=== PATIENT | male | born 1995 | race Caucasian/White ===

== ENCOUNTER 2017-02-11 07:20 | Emergency (ER) | payer SELFPAY ==
[~2017-02-11] VITALS: Ht 175.3 cm; Wt 68.0 kg
[~2017-02-11 07:20] MED LIST: ACET1TAB12 PO; ALEVE; AMOX500C2 PO; CLIN-62; LIDO20SO20 PO; TYLENOL
[2017-02-11] MEDS ORDERED: diphenhydrAMINE 50 MG/ML INJ (BENADRYL) ONE (07:34)
[2017-02-11] MEDS ORDERED: NS IV 1000 ML 1,000 ML ONE (07:34)
[2017-02-11] MEDS ORDERED: KETOROLAC 30 MG/ML VIAL ONE (07:34)
[2017-02-11] MEDS ORDERED: NS IV 1000 ML 1,000 ML IV ONE (07:36)
[2017-02-11] MEDS ORDERED: KETOROLAC 30 MG/ML VIAL IVP STA (07:36)
[2017-02-11] MEDS ORDERED: diphenhydrAMINE 50 MG/ML INJ (BENADRYL) IM ONE (07:45)
[2017-02-11] MEDS ORDERED: PROCHLORPERAZINE 10 MG/2ML INJ (COMPAZINE) IV ONE (07:45)
--- NOTE | 2017-02-11 07:54 | ED Headache ---
General Chief Complaint: Head/Cervical Problems Stated Complaint: MIGRAINE//FEVER Nursing Triage Note: to ER with reports of headache x 3 days and feeling "hot." Patient reports history of headaches in the past, they usually just don't last this long. Nursing Sepsis Screen: No Definite Risk Source: patient Exam Limitations: no limitations History of Present Illness Time seen by provider: 07:30 Initial Comments Here with complaint of headache that is bifrontal behind the eyes that has been going on for 3 days. Patient states that he has migraine headaches and the pain is typical but has lasted longer than typical. Denies nausea or vomiting. Denies fever but states he is feeling hot and denies chills. Timing/Duration: other (3 days) Severity/Quality: moderate Location: frontal Prior Headaches/Recent Trauma: occasional headaches Modifying Factors: improves with exposure to light Associated Symptoms: No confusion, No fatigue, No facial pain, fever/chills, No loss of consciousness, No nausea/vomiting, No nasal congestion, No nasal drainage, No seizures, No sinus infection, No stiff neck, No vision changes, No weakness Allergies and Home Medications Allergies Coded Allergies: NKANo Known Allergies (Verified Allergy, Unknown, 04/02/07) Home Medications No Active Prescriptions or Reported Meds Constitutional: see HPI, No chills, fever Eyes: No Symptoms Reported Ears, Nose, Mouth, Throat: see HPI, denies ear pain, nose discharge Respiratory: No cough, No short of breath Cardiovascular: No chest pain, No edema Gastrointestinal: No abdominal pain, No nausea, No vomiting Genitourinary: no symptoms reported All Other Systems Reviewed Negative Unless Noted: Yes Past Konssuz-Pehooy-Tqnzgx Hx Patient Social History Alcohol Use: Denies Use Recreational Drug Use: No Smoking Status: Former Smoker Type Used: Cigarettes 2nd Hand Smoke Exposure: Yes Recent Foreign Travel: No Contact w/Someone Who Travel: No Recent Infectious Disease Expo: No Recent Hopitalizations: No Immunizations Up To Date Tetanus Booster (TDap): Less than 5yrs Seasonal Allergies Seasonal Allergies: Yes Surgeries HX Surgeries: No Respiratory Hx Respiratory Disorders: No Cardiovascular Hx Cardiac Disorders: No Neurological Hx Neurological Disorders: No Reviewed Nursing Assessment Reviewed/Agree w Nursing PMH: No Family Medical History Significant Family History: No Pertinent Family Hx Physical Exam Vital Signs Vital Sign - Last 12Hours 02/11/17 07:30 Temp 98.8 Pulse 95 Resp 16 B/P (MAP) 135/86 Pulse Ox 99 O2 Delivery Room Air Capillary Refill : Less Than 3 Seconds General Appearance: WD/WN, no apparent distress HEENT: PERRL/EOMI, TMs normal, pharynx normal Neck: full range of motion, supple Cardiovascular: regular rate, rhythm, no murmur Respiratory: lungs clear, normal breath sounds Gastrointestinal: non tender, soft Back: normal inspection, no CVA tenderness, no vertebral tenderness Extremities: non-tender, normal inspection Psychiatric: alert, oriented x 3 Crainal Nerves: normal hearing, normal speech, PERRL Coordination/Gait: normal gait Motor/Sensory: no motor deficit, no sensory deficit, no pronator drift Skin: normal color, warm/dry Progress/Results/Core Measures Results/Orders Lab Results Laboratory Tests Test 02/11/17 07:40 Range/Units White Blood Count 9.4 4.3-11.0 10^3/uL Red Blood Count 5.00 4.35-5.85 10^6/uL Hemoglobin 14.6 13.3-17.7 G/DL Hematocrit 44 40-54 % Mean Corpuscular Volume 88 80-99 FL Mean Corpuscular Hemoglobin 29 25-34 PG Mean Corpuscular Hemoglobin Concent 33 32-36 G/DL Red Cell Distribution Width 13.9 10.0-14.5 % Platelet Count 150 130-400 10^3/uL Mean Platelet Volume 11.7 H 7.4-10.4 FL Neutrophils (%) (Auto) 63 42-75 % Lymphocytes (%) (Auto) 17 12-44 % Monocytes (%) (Auto) 17 H 0-12 % Eosinophils (%) (Auto) 3 0-10 % Basophils (%) (Auto) 1 0-10 % Neutrophils # (Auto) 6.0 1.8-7.8 X 10^3 Lymphocytes # (Auto) 1.6 1.0-4.0 X 10^3 Monocytes # (Auto) 1.6 H 0.0-1.0 X 10^3 Eosinophils # (Auto) 0.3 0.0-0.3 10^3/uL Basophils # (Auto) 0.1 0.0-0.1 10^3/uL Sodium Level 138 135-145 MMOL/L Potassium Level 4.2 3.6-5.0 MMOL/L Chloride Level 105 98-107 MMOL/L Carbon Dioxide Level 23 21-32 MMOL/L Anion Gap 10 5-14 MMOL/L Blood Urea Nitrogen 16 7-18 MG/DL Creatinine 0.93 0.60-1.30 MG/DL Estimat Glomerular Filtration Rate > 60 BUN/Creatinine Ratio 17 0-20 Glucose Level 94 70-105 MG/DL Calcium Level 8.8 8.5-10.1 MG/DL Total Bilirubin 0.4 0.1-1.0 MG/DL Aspartate Amino Transf (AST/SGOT) 27 5-34 U/L Alanine Aminotransferase (ALT/SGPT) 37 0-55 U/L Alkaline Phosphatase 96 40-136 U/L C-Reactive Protein High Sensitivity 0.76 H 0.00-0.50 MG/DL Total Protein 6.7 6.4-8.2 GM/DL Albumin 3.9 3.2-4.5 GM/DL My Orders Orders - KALYN POWERS MD Prochlorperazine Injection (Compazine In (02/11/17 07:45) Diphenhydramine Injection (Benadryl Inje (02/11/17 07:45) Saline Lock/Iv-Start (02/11/17 07:36) Ns Iv 1000 Ml (Sodium Chloride 0.9%) (02/11/17 07:36) Ketorolac Injection (Toradol Injection) (02/11/17 07:36) Cbc With Automated Diff (02/11/17 07:36) Comprehensive Metabolic Panel (02/11/17 07:36) Hs C Reactive Protein (02/11/17 07:36) Diphenhydramine Injection (Benadryl Inje (02/11/17 07:34) Ketorolac Injection (Toradol Injection) (02/11/17 07:34) Ns Iv 1000 Ml (Sodium Chloride 0.9%) (02/11/17 07:34) Diphenhydramine Injection (Benadryl Inje (02/11/17 08:00) Medications Given in ED Current Medications Medications Dose Ordered Sig/Markus Route Start Time Stop Time Status Last Admin Dose Admin Diphenhydramine HCl 50 mg STK-MED ONCE .ROUTE 02/11/17 07:34 02/11/17 07:39 DC 02/11/17 07:50 50 MG Prochlorperazine Edisylate 5 mg ONCE ONCE IV 02/11/17 07:45 02/11/17 07:46 DC 02/11/17 07:52 5 MG Sodium Chloride 1,000 ml @ 0 mls/hr Q0M ONCE IV 02/11/17 07:36 02/11/17 07:38 DC 02/11/17 07:47 0 MLS/HR Vital Signs/I&O Vital Sign - Last 12Hours 02/11/17 02/11/17 02/11/17 07:30 07:47 07:51 Temp 98.8 98.8 98.8 Pulse 95 Resp 16 B/P (MAP) 135/86 Pulse Ox 99 O2 Delivery Room Air Blood Pressure Mean: 102 Progress Note : Progress Note Seen and evaluated. IV, labs, normal saline 1 L bolus, Benadryl 50 mg IV, Compazine 10 mg IV and Toradol 30 mg IV ordered. Monitor patient. 0851: Currently pain-free and would like to go home. Patient does not have to work today and can go home and rest. Discharged home with return precautions. Patient verbalize understanding instructions and agreement with plan. Departure Impression Impression: Primary Impression: Migraine Qualified Codes: G43.009 - Migraine without aura, not intractable, without status migrainosus Disposition: HOME, SELF-CARE Condition: Improved Decision to Admit Reason: Admit from ER (General) Departure-Patient Inst. Decision time for Depature: 08:54 Referrals: NO,LOCAL PHYSICIAN (PCP/Family) Primary Care Physician Patient Instructions: Migraine Headache (DC) Add. Discharge Instructions: All discharge instructions reviewed with patient and/or family. Voiced understanding. Drink plenty of fluids. You may take ibuprofen 800 mg every 8 hours as needed for pain. You may take Tylenol 1000 mg every 8 hours as needed for pain. Return for worse pain, fever, vomiting, weakness, breathing problems, persistent headache or other concerns as needed. Follow-up with your in a few days for recheck. Scripts No Active Prescriptions or Reported Meds KALYN POWERS MD Feb 11, 2017 07:54
[2017-02-11 07:59] LABS: BASOPHILS # (AUTO) 0.1 10^3/uL (0.0-0.1); BASOPHILS % (AUTO) 1 % (0-10); EOSINOPHILS # (AUTO) 0.3 10^3/uL (0.0-0.3); EOSINOPHILS % (AUTO) 3 % (0-10); LYMPHOCYTES # (AUTO) 1.6 X 10^3 (1.0-4.0); LYMPHOCYTES % (AUTO) 17 % (12-44); MEAN CORPUSCULAR HEMOGLOBIN 29 PG (25-34); MEAN CORPUSCULAR HGB CONC 33 G/DL (32-36); MEAN CORPUSCULAR VOLUME 88 FL (80-99); MEAN PLATELET VOLUME 11.7 FL (7.4-10.4); MONOCYTES # (AUTO) 1.6 X 10^3 (0.0-1.0); MONOCYTES % (AUTO) 17 % (0-12); NEUTROPHILS % (AUTO) 63 % (42-75); PLATELET COUNT 150 10^3/uL (130-400); RED CELL DISTRIBUTION WIDTH 13.9 % (10.0-14.5); WHITE BLOOD COUNT 9.4 10^3/uL (4.3-11.0)
[2017-02-11] MEDS ORDERED: diphenhydrAMINE 50 MG/ML INJ (BENADRYL) IVP ONE (08:00)
[2017-02-11 08:25] LABS: ALANINE AMINOTRANSFERASE 37 U/L (0-55); ALBUMIN 3.9 GM/DL (3.2-4.5); ANION GAP 10 MMOL/L (5-14); ASPARTATE AMINO TRANSFERASE 27 U/L (5-34); BILIRUBIN,TOTAL 0.4 MG/DL (0.1-1.0); BLOOD UREA NITROGEN 16 MG/DL (7-18); BUN/CREATININE RATIO 17 (0-20); CALCIUM 8.8 MG/DL (8.5-10.1); CARBON DIOXIDE 23 MMOL/L (21-32); CHLORIDE 105 MMOL/L (98-107); CREATININE SERUM 0.93 MG/DL (0.60-1.30); GFR ESTIMATED > 60; GLUCOSE 94 MG/DL (70-105); HEMOLYSIS 9 (-100-29); ICTERUS 0.4 (-100-1.9); LIPEMIA 5 (-100-49); POTASSIUM 4.2 MMOL/L (3.6-5.0); SODIUM 138 MMOL/L (135-145); TOTAL PROTEIN 6.7 GM/DL (6.4-8.2); hs C REACTIVE PROTEIN 0.76 MG/DL (0.00-0.50)
[2017-02-11 09:11] VITALS: BP 122/74
== END 2017-02-11 09:11 | disposition home or self-care (01) ==
LOC: EDUNIT# 07:20 → ER 07:23
DX: G43.909 Migraine, unspecified, not intractable, without status migrainosus (principal); Z87.891 Personal history of nicotine dependence
CPT/HCPCS: 36415; 80053; 85025; 86141

== ENCOUNTER 2022-02-06 03:26 | Emergency (ER) | payer MEDICAID, OTHER ==
[~2022-02-06] VITALS: Ht 180.3 cm; Wt 75.6 kg
--- NOTE | 2022-02-06 04:36 | ED Upper Extremity ---
General Chief Complaint: Laceration Stated Complaint: R ARM LAC,ARM CUT BY GLASS Nursing Triage Note: PATIENT AMBULATED TO ROOM AND STATES THAT HE FELL WHILE ON HIS PORCH AND HIS ARM WENT THROUGH A WINDOW THAT WAS LEANED UP AGAINST THE WALL OF THE HOUSE. THERE ARE THREE LACERATIONS ON HIS RIGHT WRIST AND RIGHT FOREARM. Source: patient, other Exam Limitations: no limitations History of Present Illness Date Seen by Provider: Feb 06, 2022 Time Seen by Provider: 04:20 Initial Comments Patient to the ER with his significant other chief complaint about 9:00 last nig ht, 7 hours prior to arrival he tripped while walking around in the dark out front of his porch and landed against a pane glass window that was leaned up against the porch. He put his arm through it and has 3 large lacerations on his right forearm. He went to [facility] and they dressed the wound and put him back in the lobby. Patient states he was tired of waiting so he checked out and came here. He has had a tetanus shot in the last 5 years. He has no allergies to antibiotics. No numbness tingling or loss of control of his hand. Allergies and Home Medications Allergies Coded Allergies: Vicky Known Allergies (Verified Allergy, Unknown, 04/02/07) Patient Home Medication List Home Medication List Reviewed: Yes Cephalexin (Cephalexin) 500 Mg Tablet, 500 MG PO TID Prescribed by: RIMMA FELIX on 02/06/22524 Last Action: New Order Hydrocodone/Acetaminophen (Hydrocodone-Acetamin 5-325 mg) 5 Mg-325 Mg Tablet, 1 TAB PO Q6H PRN for PAIN-MODERATE (5-7) Prescribed by: RIMMA FELIX on 02/06/22525 Last Action: New Order Review of Systems Constitutional: No chills, No diaphoresis EENTM: No ear discharge, No ear pain Respiratory: No cough, No short of breath Cardiovascular: No chest pain, No edema Gastrointestinal: No abdominal pain, No nausea, No vomiting Genitourinary: No discharge, No dysuria Musculoskeletal: No back pain, No joint pain Skin: see HPI All Other Systems Reviewed Negative Unless Noted: Yes Past Yqzoqzx-Pzwxcj-Cfiijh Hx Patient Social History Tobacco Use?: Yes Smoking Status: Current Everyday Smoker Smokeless Tobacco Frequency: Never a User Substance use?: No Alcohol Use?: No Pt feels they are or have been: No Immunizations Up To Date Tetanus Booster (TDap): Less than 5yrs Seasonal Allergies Seasonal Allergies: Yes Past Medical History Surgeries: No Respiratory: No Cardiac: No Neurological: No Genitourinary: No Gastrointestinal: No Musculoskeletal: No Endocrine: No HEENT: No Cancer: No Psychosocial: No Integumentary: No Blood Disorders: No Family Medical History No Pertinent Family Hx Physical Exam Vital Signs Vital Signs - First Documented 02/06/22 03:52 Temp 36.3 Pulse 80 Resp 18 B/P (MAP) 120/78 (92) Pulse Ox 97 O2 Delivery Room Air Capillary Refill : Height, Weight, BMI Height: 5'9.00" Weight: 150lbs. oz. [id number]; 23.00 BMI Method:Stated General Appearance: WD/WN, no apparent distress HEENT: PERRL/EOMI, normal ENT inspection, pharynx normal Neck: non-tender, full range of motion, supple, normal inspection Cardiovascular: normal peripheral pulses, regular rate, rhythm, no edema Respiratory: no respiratory distress, no accessory muscle use Neurologic/Psychiatric: alert, normal mood/affect, oriented x 3 Skin: other (Linear laceration subcutaneous distal anterior right forearm at the wrist approximately the 5 cm diameter.Distal one third of the right ulna anterior with 2 cm laceration into the subcutaneous tissue. Mid ulnar shaft is a 4 cm linear laceration anterior right forearm.) Procedures/Interventions Wound Location: Upper Extremities Other Wound Location Ulnar anterior side at the wrist Wound Length (cm): 5 Wound's Depth, Shape: linear, sub Q Wound Explored: no foreign body removed Irrigated w/ Saline (ccs): 250 Betadine Prep?: Yes (Chlorhexidine) Anesthesia: 1% Lidocaine Volume Anesthetic (ccs): 2 Wound Debrided: minimal Suture: Ethlion Suture Size: 4-0 Number of Sutures: 5 Layer Closure?: 1 Number Deep Layer Sutures: 0 Sterile Dressing Applied?: Yes Wound Location: Upper Extremities Other Wound Location Ulnar side anterior right forearm distal one third Wound Length (cm): 2 Wound's Depth, Shape: linear, sub Q Wound Explored: clean Irrigated w/ Saline (ccs): 250 Betadine Prep?: Yes (Chlorhexidine) Anesthesia: 1% Lidocaine Volume Anesthetic (ccs): 1 Wound Debrided: minimal Suture: Ethlion Suture Size: 4-0 Number of Sutures: 2 Layer Closure?: 1 Number Deep Layer Sutures: 0 Sterile Dressing Applied?: Yes Wound Location: Upper Extremities Other Wound Location Ulnar side anterior right forearm midshaft ulna Wound Length (cm): 4 Wound's Depth, Shape: linear, sub Q Wound Explored: clean Irrigated w/ Saline (ccs): 250 Betadine Prep?: Yes (Chlorhexidine) Anesthesia: 1% Lidocaine Volume Anesthetic (ccs): 2 Wound Debrided: minimal Suture: Ethlion Suture Size: 4-0 Number of Sutures: 4 Layer Closure?: 1 Number Deep Layer Sutures: 0 Sterile Dressing Applied?: Yes Progress/Results/Core Measures Results/Orders My Orders Orders - RIMMA FELIX Lidocaine 1% Inj 20 Ml (Xylocaine 1% Inj (02/06/22 04:45) Medications Given in ED Current Medications Medications Dose Ordered Sig/Markus Route Start Time Stop Time Status Last Admin Dose Admin Lidocaine HCl 20 ml ONCE ONCE INJ 02/06/22 04:45 02/06/22 04:47 DC 02/06/22 04:44 20 ML Vital Signs/I&O 02/06/22 02/06/22 03:52 05:14 Temp 36.3 Pulse 80 71 Resp 18 18 B/P (MAP) 120/78 (92) 117/71 Pulse Ox 97 99 O2 Delivery Room Air Room Air Blood Pressure Mean: 92 Departure Impression Primary Impression: Laceration of right forearm without complication Qualified Codes: S51.811A - Laceration without foreign body of right forearm, initial encounter Disposition: 01 HOME, SELF-CARE Condition: Stable Departure-Patient Inst. Decision time for Depature: 05:17 Referrals: JUAN ESTEVEZ MD NO,LOCAL PHYSICIAN (PCP) Primary Care Physician Patient Instructions: Laceration Repair With Stitches (DC) Add. Discharge Instructions: Keep the wounds clean with regular soap and water, shampoo, body wash etc. Do not submerse the sutures underwater but showers, running water such as a sink are okay. No washing dishes. Do not use hydrogen peroxide, alcohol, iodine. Triple antibiotic ointment or Vaseline over the sutures and a clean, dry, gauze dressing to be applied at least daily or more frequently if it becomes soiled. Keep the wounds clean. Keflex 1 capsule 3 times a day for 5 days to prevent infection. Return to the ER in 10 to 14 days to have sutures removed at no additional charge. Return to the ER sooner if you are having signs of infection such as redness going up your arm, fever, vomiting etc. Tylenol 1000 mg every 8 hours as needed for pain. Ibuprofen 800 mg every 8 hours needed for pain. Hydrocodone 1 tablet every 6 hours as needed for severe breakthrough pain. Alternatively you may follow-up with the trauma surgeon, Dr. ESTEVEZ as necessary for management of symptoms. All discharge instructions reviewed with patient and/or family. Voiced understanding. Scripts Cephalexin (Cephalexin) 500 Mg Tablet 500 MG PO TID for 5 Days, #15 TAB 0 Refills Prov: RIMMA FELIX 02/06/22 Hydrocodone/Acetaminophen (Hydrocodone-Acetamin 5-325 mg) 5 Mg-325 Mg Tablet 1 TAB PO Q6H PRN for PAIN-MODERATE (5-7), #8 TAB 0 Refills Prov: RIMMA FELIX 02/06/22 Work/School Note: Work Release Form Date Seen in the Emergency Department: Feb 06, 2022 Return to Work: Feb 10, 2022 Restrictions: Need Release from Doctor Other Restrictions Listed Below: Keep wounds and sutures covered and clean. Restrictions: Minimize use of right forearm until after 02/12/2022. Copy Copies To 1: JUAN ESTEVEZ MD, TITUS J Feb 06, 2022 04:36
[2022-02-06] MEDS ORDERED: LIDOCAINE 1% INJ 20 ML VIAL INJ ONE (04:45)
[2022-02-06 05:14] VITALS: BP 117/71
[2022-02-06] MEDS ORDERED: CEPH500T PO ×2 (05:20→05:25)
[2022-02-06] MEDS ORDERED: ACHD5005 PO ×2 (05:20→05:25)
== END 2022-02-06 05:28 | disposition home or self-care (01) ==
LOC: EDUNIT# 03:26 → ER 03:29
DX: S51.811A Laceration without foreign body of right forearm, initial encounter (principal); S61.511A Laceration without foreign body of right wrist, initial encounter; F17.200 Nicotine dependence, unspecified, uncomplicated; W01.110A Fall on same level from slipping, tripping and stumbling with subsequent striking against sharp glass, initial encounter; Y92.008 Other place in unspecified non-institutional (private) residence as the place of occurrence of the external cause
CPT/HCPCS: 12034